=== PATIENT | male | born 1990 | race Caucasian/White ===

== ENCOUNTER → 2016-10-09 | Outpatient (CLI) | payer OTHER ==
[~2016-10-09] MED LIST: No Historical Meds
--- NOTE | 2016-10-09 11:34 | REP ---
Clinical: Testicular mass. Technique: Real time spivey scale and color Doppler evaluation using linear high frequency transducer. Comparison: 09/04/2015. Findings: With comparison to prior ultrasound, the bilateral testicles and epididymi are stable. The testicles are symmetrically heterogeneous with few scattered calcifications and subtle irregular contour to the right testicle is again noted without change. No focal testicular mass lesion is identified. Doppler interrogation demonstrates symmetric vascularity without torsion or acute infectious/inflammatory process. No hydroceles. No varicoceles. Right testicle measures 2.6 x 1.3 x 1.6 cm. Left testicle measures 3.5 x 1.7 x 2.2 cm. Impression: Stable appearance of the bilateral testicles. No discrete testicular mass lesion or acute abnormality. Signed by Chase Prescott MD 10/09/2016 11:25 A
== END ==
LOC: M SMT 09:50
PROVIDERS: ATTEND Urology
DX: N50.9 Disorder of male genital organs, unspecified (principal)

== ENCOUNTER → 2016-10-30 | Outpatient (CLI) | payer OTHER ==
--- NOTE | 2016-10-30 13:13 | REP ---
RIGHT ANKLE, FOUR VIEWS: HISTORY: Pain. There is no acute fracture or dislocation. The joint space is normal in appearance. Soft tissue swelling is present. IMPRESSION: There is no acute fracture or dislocation. Signed by Asaf Baig MD 10/30/2016 01:13 P
--- NOTE | 2016-10-30 13:14 | REP ---
RIGHT FOOT, FOUR VIEWS: HISTORY: Pain. There is no acute fracture or dislocation. The joint spaces are normal in appearance. IMPRESSION: There is no acute fracture or dislocation. Signed by Asaf Baig MD 10/30/2016 01:20 P
== END ==
LOC: M LRY 12:04
PROVIDERS: ATTEND Physician Assistant
DX: M25.571 Pain in right ankle and joints of right foot (principal); X58.XXXA Exposure to other specified factors, initial encounter; Y92.89 Other specified places as the place of occurrence of the external cause; Y93.89 Activity, other specified; Y99.8 Other external cause status

== ENCOUNTER → 2017-05-06 | Outpatient (REF) | payer OTHER | LOC: M SFHCLERA 16:33 | PROVIDERS: ATTEND Physician Assistant | DX: R94.6 Abnormal results of thyroid function studies (principal) ==

== ENCOUNTER → 2017-08-06 | Outpatient (REF) | payer OTHER ==
[2017-08-06 13:49] LABS: FREE T4 0.93 NG/DL (0.76-1.46)
== END ==
LOC: M SFHCLERA 08:23
DX: F32.9 Major depressive disorder, single episode, unspecified (principal)

== ENCOUNTER → 2018-08-06 | Outpatient (REF) | payer OTHER ==
[2018-08-06 11:38] LABS: BASO % 0.6 % (0.0-1.0); EOS # 0.3 10^3/uL (0.0-0.50); EOS % 3.9 % (0.0-3.0); HEMATOCRIT 44.6 % (42.0-52.0); LYMPH # 1.7 10^3/uL (1.5-6.5); LYMPH % 25.8 % (24.0-44.0); MEAN CORPUSCULAR HEMOGLOBIN 29.1 pg (27.0-33.0); MEAN CORPUSCULAR HGB CONC 33.6 g/dl (32.0-36.5); MEAN CORPUSCULAR VOLUME 86.4 fl (80.0-96.0); MONO # 0.7 10^3/uL (0.0-0.8); MONO % 11.3 % (0.0-5.0); NEUTROPHILS # 3.8 10^3/uL (1.8-7.7); NEUTROPHILS % 58.2 % (36.0-66.0); PLATELET COUNT, AUTOMATED 273 10^3/uL (150-450); RED BLOOD COUNT 5.16 10^6/uL (4.30-6.10); WHITE BLOOD COUNT 6.4 10^3/uL (4.0-10.0)
[2018-08-06 12:02] LABS: ALBUMIN 3.8 GM/DL (3.2-5.2); ALT/SGPT 40 U/L (12-78); BILIRUBIN,TOTAL 0.4 MG/DL (0.2-1.0); BLOOD UREA NITROGEN 15 MG/DL (7-18); CARBON DIOXIDE LEVEL 27 MEQ/L (21-32); CHLORIDE LEVEL 105 MEQ/L (98-107); CHOLESTEROL LEVEL 177 MG/DL (<200); CHOLESTEROL RISK RATIO 4.214 (<5); FREE T4 0.91 NG/DL (0.76-1.46); GLOMERULAR FILTRATION RATE > 60.0 (>60); GLUCOSE, FASTING 105 MG/DL (70-100); HDL CHOLESTEROL 42 MG/DL (>40); LDL CHOLESTEROL 113 MG/DL (<100); NON-HDL-C 135 MG/DL; POTASSIUM SERUM 4.7 MEQ/L (3.5-5.1); SODIUM LEVEL 141 MEQ/L (136-145); TRIGLYCERIDES LEVEL 109 MG/DL (<150)
== END ==
LOC: M SFHCLERA 09:03
PROVIDERS: ATTEND Nurse Practitioner Family
DX: Z00.00 Encounter for general adult medical examination without abnormal findings (principal); E03.9 Hypothyroidism, unspecified

== ENCOUNTER 2018-10-12 06:37 | Day surgery (SDC) | payer OTHER ==
[~2018-10-12] VITALS: Ht 177.8 cm; Wt 148.3 kg
[~2018-10-12 06:37] MED LIST changes: +LEVO75TA4 PO
[2018-10-12] MEDS ORDERED: NS 1,000 ML IV ONE (06:45)
[2018-10-12] MEDS ORDERED: PROPOFOL 200 MG/20 ML VIAL As Ordered ONE (07:01)
[2018-10-12] MEDS ORDERED: LIDOCAINE 2% INJ 100 MG/5 ML SDV (FOR ANES.) As Ordered ONE (07:40)
--- NOTE | 2018-10-12 07:56 | ROOR ---
Patient Name: Junior Skaggs Procedure Date: 10/12/2018 7:33 AM Date of : 1990 Age: 27 Room: [facility] Gender: Male Note Status: Finalized Procedure: Colonoscopy Indications: Hematochezia Providers: Roger Luciano MD Referring MD: Rae VELASQUEZ Requesting Provider: Medicines: Monitored Anesthesia Care Complications: No immediate complications. Procedure: Pre-Anesthesia Assessment: - Prior to the procedure, a History and Physical was performed, and patient medications and allergies were reviewed. The patient is competent. The risks and benefits of the procedure and the sedation options and risks were discussed with the patient. All questions were answered and informed consent was obtained. Patient identification and proposed procedure were verified by the physician, the nurse and the anesthesiologist in the procedure room. Mental Status Examination: alert and oriented. Airway Examination: normal oropharyngeal airway and neck mobility. Respiratory Examination: clear to auscultation. CV Examination: normal. Prophylactic Antibiotics: The patient does not require prophylactic antibiotics. Prior Anticoagulants: The patient has taken no previous anticoagulant or antiplatelet agents. ASA Grade Assessment: III - A patient with severe systemic disease. After reviewing the risks and benefits, the patient was deemed in satisfactory condition to undergo the procedure. The anesthesia plan was to use monitored anesthesia care (MAC). Immediately prior to administration of medications, the patient was re-assessed for adequacy to receive sedatives. The heart rate, respiratory rate, oxygen saturations, blood pressure, adequacy of pulmonary ventilation, and response to care were monitored throughout the procedure. The physical status of the patient was re-assessed after the procedure. The Colonoscope was introduced through the anus and advanced to the terminal ileum, with identification of the appendiceal orifice and IC valve. The patient tolerated the procedure well. The colonoscopy was performed without difficulty. The quality of the bowel preparation was good. The terminal ileum, ileocecal valve, appendiceal orifice, and rectum were photographed. Scope insertion time was 2 minutes. Scope withdrawal time was 8 minutes. The total duration of the procedure was 10 minutes. Findings: The perianal and digital rectal examinations were normal. The terminal ileum appeared normal. Non-bleeding external and internal hemorrhoids were found during retroflexion. The hemorrhoids were medium-sized. No other significant abnormalities were identified in a careful examination of the remainder of the colon. Impression: - The examined portion of the ileum was normal. - Non-bleeding external and internal hemorrhoids. - No specimens collected. Recommendation: - Patient has a contact number available for emergencies. The signs and symptoms of potential delayed complications were discussed with the patient. Return to normal activities tomorrow. Written discharge instructions were provided to the patient. - High fiber diet. - Continue present medications. - Preparation H suppository: Insert rectally daily for 5 days. - Return to primary care physician. Roger Luciano MD Roger Luciano MD 10/12/2018 7:56:40 AM Electronically signed by Roger Luciano MD Number of Addenda: 0 Note Initiated On: 10/12/2018 7:33 AM Estimated Blood Loss: Estimated blood loss: none.
[2018-10-12 08:05] VITALS: BP 148/97
== END 2018-10-12 08:18 | disposition home or self-care (01) ==
LOC: M OPP 06:37
PROVIDERS: ATTEND Internal Medicine Gastroenterology
DX: K92.1 Melena (principal); E03.9 Hypothyroidism, unspecified; Z79.899 Other long term (current) drug therapy

== ENCOUNTER 2018-12-01 11:42 | Emergency (ER) | payer OTHER ==
[~2018-12-01] VITALS: Ht 177.8 cm; Wt 152.0 kg
[2018-12-01 12:16] LABS: BASO % 0.4 % (0.0-1.0); EOS # 0.2 10^3/uL (0.0-0.50); EOS % 2.8 % (0.0-3.0); HEMATOCRIT 43.9 % (42.0-52.0); LYMPH # 1.5 10^3/uL (1.5-6.5); LYMPH % 18.4 % (24.0-44.0); MEAN CORPUSCULAR HEMOGLOBIN 29.8 pg (27.0-33.0); MEAN CORPUSCULAR HGB CONC 34.2 g/dl (32.0-36.5); MEAN CORPUSCULAR VOLUME 87.3 fl (80.0-96.0); MONO # 0.7 10^3/uL (0.0-0.8); MONO % 8.7 % (0.0-5.0); NEUTROPHILS # 5.8 10^3/uL (1.8-7.7); NEUTROPHILS % 69.3 % (36.0-66.0); PLATELET COUNT, AUTOMATED 252 10^3/uL (150-450); RED BLOOD COUNT 5.03 10^6/uL (4.30-6.10); WHITE BLOOD COUNT 8.4 10^3/uL (4.0-10.0)
[2018-12-01 12:51] LABS: INR 0.95; PROTHROMBIN TIME 12.8 SECONDS (12.1-14.4)
[2018-12-01 12:52] LABS: PARTIAL THROMBOPLASTIN TIME 26.4 SECONDS (25.4-37.6)
--- NOTE | 2018-12-01 12:55 | REP ---
CT Head without contrast HISTORY: Fall COMPARISON: 04/14/2009 There is no intraparenchymal hemorrhage, acute infarct, mass or midline shift. 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 The ventricular system is normal in appearance. There is no extra cerebral collection. There is no fracture. The visualized sinuses are clear. IMPRESSION: There is no intracranial lesion. Electronically Signed by Asaf Baig MD 12/01/2018 12:47 P
[2018-12-01 13:00] LABS: ALBUMIN 3.4 GM/DL (3.2-5.2); ALT/SGPT 27 U/L (12-78); BILIRUBIN,DIRECT < 0.1 MG/DL (0.0-0.2); BILIRUBIN,TOTAL 0.3 MG/DL (0.2-1.0); BLOOD UREA NITROGEN 14 MG/DL (7-18); CALCIUM LEVEL 9.2 MG/DL (8.5-10.1); CARBON DIOXIDE LEVEL 27 MEQ/L (21-32); CHLORIDE LEVEL 108 MEQ/L (98-107); CREATININE FOR GFR 0.86 MG/DL (0.70-1.30); ETHYL ALCOHOL (ETHANOL) < 0.003 % (0.000-0.010); GLOMERULAR FILTRATION RATE > 60.0 (>60); GLUCOSE, FASTING 123 MG/DL (70-100); POTASSIUM SERUM 4.2 MEQ/L (3.5-5.1); SODIUM LEVEL 142 MEQ/L (136-145); TOTAL PROTEIN 6.6 GM/DL (6.4-8.2)
--- NOTE | 2018-12-01 13:00 | REP ---
CT cervical spine without contrast HISTORY: Fall COMPARISON: None The cervical spine is visualized from C1 to the C7 level. There is no acute fracture or subluxation. There is no disc bulge or herniation. The spinal canal and neural foramina are patent. The intervertebral discs and vertebral bodies are normal in height. There is loss of the normal lordotic curve. IMPRESSION: There is no acute fracture or subluxation. Electronically Signed by Asaf Baig MD 12/01/2018 12:52 P
[2018-12-01 13:39] LABS: AMPHETAMINES LEVEL URINE NEGATIVE (NEGATIVE); BARBITURATES URINE NEGATIVE (NEGATIVE); BENZODIAZEPINES URINE NEGATIVE (NEGATIVE); CANNABINOIDS URINE NEGATIVE (NEGATIVE); COCAINE METABOLITE URINE NEGATIVE (NEGATIVE); METHADONE URINE NEGATIVE (NEGATIVE); OPIATES URINE NEGATIVE (NEGATIVE); PHENCYCLIDINE URINE NEGATIVE (NEGATIVE)
[2018-12-01] MEDS ORDERED: KETOROLAC 30 MG/ML VIAL (J1885) As Ordered ONE (14:13)
[2018-12-01] MEDS ORDERED: KETOROLAC 30 MG/ML VIAL (J1885) IV ONE (14:15)
[2018-12-01 15:11] LABS: CK-MB VALUE MASS < 1.0 NG/ML (<3.6); CPK CREATINE PHOSPHOKINASE 48 U/L (39-308); MB/CK RELATIVE INDEX 2.08 (< OR =4); TROPONIN I < 0.02 NG/ML (< 0.10)
--- NOTE | 2018-12-01 22:12 | REPVR ---
EXAM: MR Head Without Contrast EXAM DATE/TIME: 12/01/2018 9:12 PM CLINICAL HISTORY: 28 years old, male; Signs and symptoms; Dizziness and other: Fall this am, ? seizure; Additional info: Syncope/headache TECHNIQUE: Imaging protocol: MR of the head without contrast. 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 I would recommend a followup MRI examination in no longer in 6 months for reevaluation of the document stability. Followup should be done with contrast. There is no evidence of abnormal signal intensity within the brain. There is no evidence of mass effect. Ventricles: Normal. No ventriculomegaly. Bones/joints: Unremarkable. Soft tissues: Normal. Sinuses: Clear paranasal sinuses and mastoid air cells. Mastoid air cells: Normal as visualized. No mastoid effusion. Orbits: Unremarkable. Other vasculature: The vessels of the [place] have normal signal void. 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 To exclude any possibility pathology recommend followup MRI in no longer than 6 months for reevaluation and to document stability. Contrast would be helpful. Electronically signed by: Mu Butts On 12/01/2018 22:12:13 PM
[2018-12-01] MEDS ORDERED: IBUP-1114 PO (22:26)
[2018-12-01 22:47] VITALS: BP 145/81
--- NOTE | 2018-12-02 06:06 | ECGEPIP ---
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
--- NOTE | 2018-12-03 14:06 | ED PDOC ---
Post-Departure Follow-Up dr parker and vannesa davis faxed formal report of mri brain for fu Kar Fallon MD December 03, 2018 14:06
== END 2018-12-01 23:21 | disposition home or self-care (01) ==
LOC: M ED 11:42
DX: S06.0X9A Concussion with loss of consciousness of unspecified duration, initial encounter (principal); X58.XXXA Exposure to other specified factors, initial encounter; Y92.9 Unspecified place or not applicable; Y93.9 Activity, unspecified; Y99.9 Unspecified external cause status; R93.0 Abnormal findings on diagnostic imaging of skull and head, not elsewhere classified; E03.9 Hypothyroidism, unspecified; M54.5 Low back pain; Z79.899 Other long term (current) drug therapy
CPT/HCPCS: 70450; 70551; 72125; 80048; 80076; 80307; 81001; 82550; 82553; 84443; 84484; 85025; 85610; 85730; 93005; 93041; 94760; 96374; 99285; G0480; J1885

== ENCOUNTER 2019-04-11 20:20 | Emergency (ER) | payer OTHER ==
[~2019-04-11] VITALS: Ht 177.8 cm; Wt 138.6 kg
[~2019-04-11 20:20] MED LIST changes: +IBUP-1114 PO
[2019-04-11] MEDS ORDERED: LORazepam 2 MG/ML VIAL (J2060) IV STA (20:33)
[2019-04-11] MEDS ORDERED: NS 1,000 ML IV SCH (20:33)
[2019-04-11] MEDS ORDERED: ASPIRIN 81 MG CHEW TABLET PO ONE (20:45)
[2019-04-11 20:55] LABS: BASO % 0.3 % (0.0-1.0); EOS # 0.2 10^3/uL (0.0-0.5); EOS % 1.6 % (0.0-3.0); HEMATOCRIT 43.7 % (42.0-52.0); LYMPH % 20.3 % (24.0-44.0); MEAN CORPUSCULAR HEMOGLOBIN 29.4 pg (27.0-33.0); MEAN CORPUSCULAR HGB CONC 34.3 g/dl (32.0-36.5); MEAN CORPUSCULAR VOLUME 85.7 fl (80.0-96.0); MONO # 0.6 10^3/uL (0.0-0.8); MONO % 6.3 % (0.0-5.0); NEUTROPHILS # 7.1 10^3/uL (1.5-8.5); NEUTROPHILS % 71.3 % (36.0-66.0); PLATELET COUNT, AUTOMATED 279 10^3/uL (150-450)
[2019-04-11 21:05] LABS: INR 0.99; PROTHROMBIN TIME 12.8 SECONDS (11.8-14.0)
[2019-04-11 21:24] LABS: ALBUMIN 3.6 GM/DL (3.2-5.2); ALT/SGPT 39 U/L (12-78); BILIRUBIN,DIRECT 0.2 MG/DL (0.0-0.2); BILIRUBIN,TOTAL 0.6 MG/DL (0.2-1.0); BLOOD UREA NITROGEN 10 MG/DL (7-18); CALCIUM LEVEL 8.6 MG/DL (8.5-10.1); CARBON DIOXIDE LEVEL 26 MEQ/L (21-32); CHLORIDE LEVEL 107 MEQ/L (98-107); CK-MB VALUE MASS < 1.0 NG/ML (<3.6); CPK CREATINE PHOSPHOKINASE 48 U/L (39-308); CREATININE FOR GFR 0.99 MG/DL (0.70-1.30); GLOMERULAR FILTRATION RATE > 60.0 (>60); GLUCOSE, FASTING 108 MG/DL (70-100); LIPASE 73 U/L (73-393); MB/CK RELATIVE INDEX 2.08 (< OR =4); POTASSIUM SERUM 3.9 MEQ/L (3.5-5.1); SODIUM LEVEL 141 MEQ/L (136-145); TOTAL PROTEIN 7.2 GM/DL (6.4-8.2); TROPONIN I < 0.02 NG/ML (< 0.10)
[2019-04-11 21:35] VITALS: BP 137/72
--- NOTE | 2019-04-12 08:09 | REP ---
Chest x-ray: Two views. History: Chest pain . Comparison study: No comparison chest x-ray . Findings: The lungs are well inflated and free of infiltrate. The pleural angles are sharp. The heart size is normal. Pulmonary vasculature is not increased. No significant bony abnormality is seen. Impression: Negative chest x-ray. Electronically Signed by Marco Mccrary MD 04/12/2019 08:00 A
--- NOTE | 2019-04-12 08:28 | ECGEPIP ---
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
== END 2019-04-11 22:00 | disposition home or self-care (01) ==
LOC: M ED 20:20
DX: F41.9 Anxiety disorder, unspecified (principal); J45.909 Unspecified asthma, uncomplicated; E07.9 Disorder of thyroid, unspecified; Z79.890 Hormone replacement therapy
CPT/HCPCS: 71046; 80048; 80076; 82550; 82553; 83690; 84484; 85025; 85610; 93005; 93041; 94760; 96361; 96374; 99284; J2060

== ENCOUNTER → 2019-08-24 | Outpatient (REF) | payer OTHER ==
[2019-08-24 12:10] LABS: ALBUMIN 3.8 GM/DL (3.2-5.2); ALT/SGPT 51 U/L (12-78); BILIRUBIN,TOTAL 0.5 MG/DL (0.2-1.0); BLOOD UREA NITROGEN 15 MG/DL (7-18); CALCIUM LEVEL 9.5 MG/DL (8.5-10.1); CARBON DIOXIDE LEVEL 28 MEQ/L (21-32); CHLORIDE LEVEL 107 MEQ/L (98-107); CREATININE FOR GFR 0.91 MG/DL (0.70-1.30); GLOMERULAR FILTRATION RATE > 60.0 (>60); GLUCOSE, FASTING 95 MG/DL (70-100); POTASSIUM SERUM 4.1 MEQ/L (3.5-5.1); SODIUM LEVEL 142 MEQ/L (136-145)
[2019-08-24 12:28] LABS: HEMOGLOBIN A1c 5.6 %
== END ==
LOC: M SFHCLERA 08:41
PROVIDERS: ATTEND Nurse Practitioner Family
DX: R73.03 Prediabetes (principal)

== ENCOUNTER → 2019-08-24 | Outpatient (CLI) | payer OTHER ==
--- NOTE | 2019-08-24 09:32 | REP ---
Clinical: Pain. Technique: AP, lateral, swimmers, flexion/extension, open-mouth and bilateral oblique views of the cervical spine. Findings: Straightening of normal lordosis is suggested. Alignment is maintained and there is no acute fracture / compression injury or subluxation. There is minimal endplate sclerosis and subtle disc space narrowing suggested at C4-5 through C6-7. Neural foramen are patent. Open mouth view demonstrates normal C1-C2 articulation and odontoid process. Impression: Mild degenerative spondylosis at C4-C7. Electronically Signed by Chase Prescott MD 08/24/2019 09:24 A
== END ==
LOC: M LRY 08:50
PROVIDERS: ATTEND Nurse Practitioner Family
DX: E65 Localized adiposity (principal)

== ENCOUNTER → 2019-09-03 | Outpatient (REF) | payer OTHER ==
[2019-09-03 12:48] LABS: FREE T4 1.06 NG/DL (0.76-1.46); THYROID STIMULATING HORMONE 4.54 uIU/ML (0.358-3.740)
== END ==
LOC: M SFHCLERA 09:35
PROVIDERS: ATTEND Nurse Practitioner Family
DX: E03.9 Hypothyroidism, unspecified (principal)

== ENCOUNTER → 2019-10-12 | Outpatient (REF) | payer OTHER ==
[2019-10-12 11:41] LABS: FREE T4 1.24 NG/DL (0.76-1.46); THYROID STIMULATING HORMONE 4.27 uIU/ML (0.358-3.740)
== END ==
LOC: M SFHCLERA 08:50
PROVIDERS: ATTEND Nurse Practitioner Family
DX: E03.9 Hypothyroidism, unspecified (principal)

== ENCOUNTER → 2019-11-08 | Outpatient (CLI) | payer OTHER | LOC: M LABSMTC 12:29 | PROVIDERS: ATTEND Family Medicine | DX: Z11.59 Encounter for screening for other viral diseases (principal); Z20.828 Contact with and (suspected) exposure to other viral communicable diseases ==

== ENCOUNTER 2020-07-02 07:10 | Emergency (ER) | payer OTHER ==
[~2020-07-02] VITALS: Ht 177.8 cm; Wt 145.8 kg
[2020-07-02] MEDS ORDERED: METF-838 PO (07:19)
[2020-07-02] MEDS ORDERED: METF-877 PO (07:19)
[2020-07-02] MEDS ORDERED: IBUP200T45 PO (07:19)
[2020-07-02] MEDS ORDERED: CYCL-707 PO (07:36)
[2020-07-02] MEDS ORDERED: IBUP-1022 PO (07:37)
[2020-07-02] MEDS ORDERED: NORCO, ANEXSIA 5/325MG TABLET (HYDROcodone/ACETAMINOPHEN) PO ONE (07:45)
[2020-07-02] MEDS ORDERED: CYCLOBENZAPRINE 10MG TABLET PO ONE (07:45)
[2020-07-02 07:46] VITALS: BP 157/98
== END 2020-07-02 07:49 | disposition home or self-care (01) ==
LOC: M ED 07:10
DX: M54.9 Dorsalgia, unspecified (principal); E11.9 Type 2 diabetes mellitus without complications; E07.9 Disorder of thyroid, unspecified; Z79.899 Other long term (current) drug therapy

== ENCOUNTER → 2020-09-18 | Outpatient (CLI) | payer OTHER ==
[~2020-09-18] MED LIST changes: +CYCL-707 PO; +IBUP-1022 PO; +IBUP200T45 PO; +METF-838 PO; +METF-877 PO
[2020-09-18 16:22] LABS: BLOOD UREA NITROGEN 17 MG/DL (7-18); CARBON DIOXIDE LEVEL 28 MEQ/L (21-32); CHLORIDE LEVEL 108 MEQ/L (98-107); CREATININE FOR GFR 0.96 MG/DL (0.70-1.30); GLOMERULAR FILTRATION RATE > 60.0 (>60); GLUCOSE, FASTING 91 MG/DL (70-100); POTASSIUM SERUM 4.4 MEQ/L (3.5-5.1); SODIUM LEVEL 140 MEQ/L (136-145)
[2020-09-18 17:00] LABS: HEMOGLOBIN A1c 5.6 %
== END ==
LOC: M WUC 11:56
PROVIDERS: ATTEND Nurse Practitioner Family
DX: E03.9 Hypothyroidism, unspecified (principal); R73.03 Prediabetes

== ENCOUNTER 2020-12-17 23:23 | Emergency (ER) | payer OTHER ==
[~2020-12-17] VITALS: Ht 177.8 cm; Wt 143.9 kg
[2020-12-18 01:47] LABS: BASO % 0.5 % (0.0-1.0); EOS # 0.2 10^3/uL (0.0-0.5); EOS % 2.8 % (0.0-3.0); HEMATOCRIT 41.8 % (42.0-52.0); HEMOGLOBIN 13.6 g/dl (13.5-17.5); LYMPH # 2.8 10^3/uL (1.5-5.0); LYMPH % 36.8 % (24.0-44.0); MEAN CORPUSCULAR HEMOGLOBIN 28.8 pg (27.0-33.0); MEAN CORPUSCULAR HGB CONC 32.5 g/dl (32.0-36.5); MEAN CORPUSCULAR VOLUME 88.4 fl (80.0-96.0); MONO # 0.9 10^3/uL (0.0-0.8); MONO % 11.6 % (2.0-8.0); NEUTROPHILS # 3.6 10^3/uL (1.5-8.5); NEUTROPHILS % 48.2 % (36.0-66.0); PLATELET COUNT, AUTOMATED 230 10^3/uL (150-450); RED BLOOD COUNT 4.73 10^6/uL (4.30-6.10); WHITE BLOOD COUNT 7.5 10^3/uL (4.0-10.0)
--- NOTE | 2020-12-18 02:32 | REPVR ---
PROCEDURE INFORMATION: Exam: CT Abdomen And Pelvis Without Contrast Exam date and time: 12/18/2020 1:37 AM Age: 30 years old Clinical indication: Left flank pain, hematuria TECHNIQUE: Imaging protocol: Computed tomography of the abdomen and pelvis without contrast. Radiation optimization: All CT scans at this facility use at least one of these dose optimization techniques: automated exposure control; mA and/or kV adjustment per patient size (includes targeted exams where dose is matched to clinical indication); or iterative reconstruction. COMPARISON: No relevant prior studies available. FINDINGS: Lungs: The imaged portions of the lung bases are clear. The lungs were not fully imaged. Heart: No cardiomegaly or pericardial effusion. Liver: Unremarkable. No liver lesion is identified. The contour of the liver is smooth. No hepatomegaly is noted. Gallbladder and bile ducts: There is high attenuation material layering in the dependent portion of the gallbladder, which may represent gallstones and/or biliary sludge. No gallbladder wall thickening, pericholecystic fluid, or inflammatory fat stranding is noted around the gallbladder. No dilation of the bile ducts is noted. No calcified stones are seen in the common bile duct. Pancreas: Unremarkable. No dilation of the main pancreatic duct is noted. Spleen: Unremarkable. No splenomegaly is noted. Adrenal glands: Normal. No adrenal mass is noted. Kidneys and ureters: There is a 4 mm calculus in the left ureteropelvic junction. There is a 4 mm calculus in an upper pole calyx of the right kidney. No calculi are noted in the right ureter. No hydronephrosis or hydroureter is noted. No renal lesion is identified with this unenhanced technique. Stomach and bowel: The stomach and small bowel are unremarkable. There is no evidence for a bowel obstruction, diverticulosis, diverticulitis, perforated viscus, pneumatosis intestinalis, intussusception, or volvulus. There is a moderate amount of formed stool in the cecum, ascending colon, and transverse colon. The descending colon and sigmoid colon are decompressed, limiting their optimal evaluation. There is no pericolonic inflammatory fat stranding. Appendix: Normal. There is no evidence for appendicitis. Intraperitoneal space: No free air. No ascites. No abscess. Retroperitoneal space: No fluid collection. No mass. Vasculature: The abdominal aorta is normal in caliber. Lymph nodes: No enlarged lymph nodes. Urinary bladder: The distended urinary bladder is normal in appearance. No stones or masses are seen in the bladder. Reproductive: The prostate gland and seminal vesicles are unremarkable. Bones/joints: There is a chronic fracture of the left superior articular process of S1 (images 85-86 of the sagittal series 203). No acute fracture or dislocation is noted. 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 Soft tissues: There is a small fat containing umbilical hernia. There is nonspecific edema in the subcutaneous tissues posteriorly along the midline of the lumbar spine. IMPRESSION: 1. 4 mm calculus in the left ureteropelvic junction, but no left hydronephrosis. 2. 4 mm calculus in an upper pole calyx of the right kidney, but no right hydronephrosis. 3. High attenuation material layering in the dependent portion of the gallbladder, which may represent gallstones and/or biliary sludge. 4. Small fat containing umbilical hernia. Electronically signed by: Alex Barrientos On 12/18/2020 02:32:17 AM
[2020-12-18] MEDS ORDERED: ONDA4TAB6 PO (02:37)
[2020-12-18] MEDS ORDERED: FLOM0.4C39 PO (02:37)
[2020-12-18] MEDS ORDERED: IBUP-1022 PO (02:37)
[2020-12-18 02:45] VITALS: BP 137/84
== END 2020-12-18 02:47 | disposition home or self-care (01) ==
LOC: M ED 23:23
DX: N20.2 Calculus of kidney with calculus of ureter (principal); K43.9 Ventral hernia without obstruction or gangrene; M19.09 Primary osteoarthritis, other specified site; E11.9 Type 2 diabetes mellitus without complications; Z79.84 Long term (current) use of oral hypoglycemic drugs; Z79.899 Other long term (current) drug therapy

== ENCOUNTER → 2020-12-21 | Outpatient (CLI) | payer OTHER ==
[~2020-12-21] MED LIST changes: +FLOM0.4C39 PO; +ONDA4TAB6 PO
[2020-12-21 17:14] LABS: FOLLICLE STIMULATING HORMONE 15.1 mIU/mL (1.4-18.1); LUTEINIZING HORMONE 8.4 mIU/mL (1.5-9.3)
== END ==
LOC: M WUC 11:16
PROVIDERS: ATTEND Nurse Practitioner Family
DX: R86.9 Unspecified abnormal finding in specimens from male genital organs (principal); N46.9 Male infertility, unspecified

== ENCOUNTER → 2020-12-21 | Outpatient (REF) | payer OTHER ==
[2020-12-21 12:18] LABS: APPEARANCE, URINE CLEAR (CLEAR); BACTERIA, URINE AUTO NEGATIVE (NEGATIVE); BILIRUBIN, URINE AUTO NEGATIVE (NEGATIVE); BLOOD, URINE BLOOD 2+ (NEGATIVE); COLOR, URINE YELLOW (YELLOW); GLUCOSE, URINE (UA) AUTO NEGATIVE (NEGATIVE); KETONE, URINE AUTO NEGATIVE (NEGATIVE); LEUKOCYTE ESTERASE, URINE AUTO NEGATIVE (NEGATIVE); MUCUS, URINE SMALL (NEGATIVE); NITRITE, URINE AUTO NEGATIVE (NEGATIVE); PROTEIN, URINE AUTO NEGATIVE (NEGATIVE); RBC, URINE AUTO 23 /HPF (0-3); SPECIFIC GRAVITY URINE AUTO 1.025 (1.002-1.035); SQUAMOUS EPITHELIAL CELL UR AU 0 /HPF (0-6); UROBILINOGEN, URINE AUTO 0.2 mg/dL (0.0-2.0); WBC, URINE AUTO 2 /HPF (0-3)
== END ==
LOC: M SMT 11:56
PROVIDERS: ATTEND Nurse Practitioner Family
DX: R86.9 Unspecified abnormal finding in specimens from male genital organs (principal); N46.9 Male infertility, unspecified

== ENCOUNTER → 2021-03-14 | Outpatient (CLI) | payer OTHER ==
[2021-03-14 17:27] LABS: BLOOD UREA NITROGEN 12 MG/DL (7-18); CALCIUM LEVEL 9.1 MG/DL (8.5-10.1); CARBON DIOXIDE LEVEL 26 MEQ/L (21-32); CHLORIDE LEVEL 107 MEQ/L (98-107); CREATININE FOR GFR 0.98 MG/DL (0.70-1.30); FREE T4 1.13 NG/DL (0.76-1.46); GLOMERULAR FILTRATION RATE > 60.0 (>60); GLUCOSE, FASTING 80 MG/DL (70-100); POTASSIUM SERUM 4.5 MEQ/L (3.5-5.1); SODIUM LEVEL 140 MEQ/L (136-145)
[2021-03-14 18:08] LABS: HEMOGLOBIN A1c 5.4 %
== END ==
LOC: M WUC 14:27
PROVIDERS: ATTEND Nurse Practitioner Family
DX: E03.9 Hypothyroidism, unspecified (principal); R73.03 Prediabetes

== ENCOUNTER → 2021-09-14 | Outpatient (CLI) | payer OTHER ==
[2021-09-14 16:56] LABS: BLOOD UREA NITROGEN 17 MG/DL (7-18); CALCIUM LEVEL 9.2 MG/DL (8.5-10.1); CARBON DIOXIDE LEVEL 30 MEQ/L (21-32); CHLORIDE LEVEL 108 MEQ/L (98-107); CREATININE FOR GFR 0.94 MG/DL (0.70-1.30); FREE T4 1.25 NG/DL (0.76-1.46); GLOMERULAR FILTRATION RATE > 60.0 (>60); GLUCOSE, FASTING 101 MG/DL (70-100); POTASSIUM SERUM 4.5 MEQ/L (3.5-5.1); SODIUM LEVEL 142 MEQ/L (136-145)
[2021-09-14 17:32] LABS: HEMOGLOBIN A1c 5.7 %
== END ==
LOC: M WUC 11:39
PROVIDERS: ATTEND Nurse Practitioner Family
DX: E03.9 Hypothyroidism, unspecified (principal); R73.03 Prediabetes

== ENCOUNTER → 2021-10-05 | Outpatient (CLI) | payer OTHER | LOC: M SOG 09:31 | PROVIDERS: ATTEND Orthopaedic Surgery | DX: M25.521 Pain in right elbow (principal) ==

== ENCOUNTER → 2022-02-22 | Outpatient (CLI) | payer OTHER ==
[2022-02-22 13:10] LABS: HEMOGLOBIN A1c 5.6 %
[2022-02-22 13:19] LABS: FREE T4 0.94 NG/DL (0.76-1.46); THYROID STIMULATING HORMONE 2.01 uIU/ML (0.358-3.740)
== END ==
LOC: M WUC 09:03
PROVIDERS: ATTEND Student in an Organized Health Care Education/Training Program
DX: E03.9 Hypothyroidism, unspecified (principal); R73.03 Prediabetes

== ENCOUNTER → 2022-11-20 | Outpatient (CLI) | payer OTHER ==
[2022-11-20 13:34] LABS: APPEARANCE, URINE CLEAR (CLEAR); BACTERIA, URINE AUTO NEGATIVE (NEGATIVE); BILIRUBIN, URINE AUTO NEGATIVE (NEGATIVE); BLOOD, URINE BLOOD NEGATIVE (NEGATIVE); COLOR, URINE STRAW (YELLOW); GLUCOSE, URINE (UA) AUTO NEGATIVE (NEGATIVE); KETONE, URINE AUTO NEGATIVE (NEGATIVE); LEUKOCYTE ESTERASE, URINE AUTO NEGATIVE (NEGATIVE); NITRITE, URINE AUTO NEGATIVE (NEGATIVE); PROTEIN, URINE AUTO NEGATIVE (NEGATIVE); RBC, URINE AUTO 0 /HPF (0-3); SPECIFIC GRAVITY URINE AUTO 1.006 (1.002-1.035); SQUAMOUS EPITHELIAL CELL UR AU 0 /HPF (0-6); UROBILINOGEN, URINE AUTO 0.2 mg/dL (0.0-2.0); WBC, URINE AUTO 1 /HPF (0-3)
[2022-11-20 13:46] LABS: BASO % 0.6 % (0.0-1.0); EOS # 0.3 10^3/uL (0.0-0.5); HEMATOCRIT 43.6 % (42.0-52.0); HEMOGLOBIN 14.8 g/dl (13.5-17.5); LYMPH # 1.7 10^3/uL (1.5-5.0); LYMPH % 33.7 % (24.0-44.0); MEAN CORPUSCULAR HEMOGLOBIN 30.3 pg (27.0-33.0); MEAN CORPUSCULAR HGB CONC 33.9 g/dl (32.0-36.5); MEAN CORPUSCULAR VOLUME 89.2 fl (80.0-96.0); MONO # 0.5 10^3/uL (0.0-0.8); MONO % 10.1 % (2.0-8.0); NEUTROPHILS # 2.5 10^3/uL (1.5-8.5); NEUTROPHILS % 49.4 % (36.0-66.0); PLATELET COUNT, AUTOMATED 222 10^3/uL (150-450); RED BLOOD COUNT 4.89 10^6/uL (4.30-6.10)
[2022-11-20 13:48] LABS: HEMOGLOBIN A1c 5.2 % (4.0-6.0)
[2022-11-20 13:59] LABS: CORTISOL AM 11.7 UG/DL (4.3-22.4); CREATININE, URINE 37.8 MG/DL
[2022-11-20 14:00] LABS: MALB URINE SIEMENS < 3.0 MG/L; MAU/CREAT RATIO 7.9 MCG/MG (0.0-30.0)
[2022-11-20 14:02] LABS: THYROID STIMULATING HORMONE 3.301 uIU/ML (0.55-4.78)
[2022-11-20 14:03] LABS: FOLLICLE STIMULATING HORMONE 23.4 mIU/ML (1.4-18.1); LUTEINIZING HORMONE 11.7 mIU/ML (1.5-9.3); PROLACTIN 7.45 NG/ML (2.1-17.7)
[2022-11-20 14:04] LABS: ALBUMIN 3.7 G/DL (3.2-5.2); ALKALINE PHOSPHATASE 57 U/L (46-116); ALT/SGPT 17 U/L (7.0-40); AST/SGOT 10 U/L (<34); BILIRUBIN,TOTAL 0.8 MG/DL (0.3-1.2); BLOOD UREA NITROGEN 16 MG/DL (9-23); CALCIUM LEVEL 8.4 MG/DL (8.5-10.1); CARBON DIOXIDE LEVEL 28 MMOL/L (20-31); CHLORIDE LEVEL 105 MMOL/L (98-107); CHOLESTEROL LEVEL 170 MG/DL (<200); CHOLESTEROL RISK RATIO 3.13 (<5); CREATININE FOR GFR 0.95 MG/DL (0.70-1.30); GLOMERULAR FILTRATION RATE > 60.0 (>60); GLUCOSE, FASTING 90 MG/DL (60-100); HDL CHOLESTEROL 54.3 MG/DL (>40); LDL CHOLESTEROL 102.7 MG/DL (<100); NON-HDL-C 115.7 MG/DL; POTASSIUM SERUM 4.5 MMOL/L (3.5-5.1); SODIUM LEVEL 138 MMOL/L (136-145); TOTAL PROTEIN 6.6 G/DL (5.7-8.2); TRIGLYCERIDES LEVEL 65 MG/DL (<150)
[2022-11-21 11:08] LABS: TESTOSTERONE FREE (DIRECT) 18.1 pg/mL (8.7-25.1)
== END ==
LOC: M WUC 08:43
PROVIDERS: ATTEND Family Medicine
DX: E03.9 Hypothyroidism, unspecified (principal); R73.03 Prediabetes; E66.9 Obesity, unspecified

== ENCOUNTER → 2023-02-05 | Outpatient (CLI) | payer OTHER ==
[~2023-02-05] MED LIST changes: +PROHANCE 279.3MG/ML 15ML VIAL As Ordered ONE; +PROHANCE 279.3MG/ML 5ML VIAL As Ordered ONE
== END ==
LOC: M RAD 12:43
PROVIDERS: ATTEND Family Medicine
DX: E34.8 Other specified endocrine disorders (principal); Q28.3 Other malformations of cerebral vessels; J34.9 Unspecified disorder of nose and nasal sinuses
CPT/HCPCS: 70553; A9576

== ENCOUNTER → 2024-11-26 | Outpatient (REF) | payer OTHER ==
[~2024-11-26] MED LIST changes: -FLOM0.4C39 PO; +ONDA-282 PO; -ONDA4TAB6 PO; -PROHANCE 279.3MG/ML 15ML VIAL As Ordered ONE; -PROHANCE 279.3MG/ML 5ML VIAL As Ordered ONE; +TAMS-18 PO
== END ==
LOC: M LAB REF 12:19
PROVIDERS: ATTEND Physician Assistant Medical
DX: R68.82 Decreased libido (principal)

== ENCOUNTER → 2025-05-31 | Outpatient (REF) | payer OTHER ==
[~2025-05-31] MED LIST changes: -IBUP-1022 PO; +IBUP600T42 PO
== END ==
LOC: M LAB REF 12:12
PROVIDERS: ATTEND Physician Assistant Medical
DX: R68.82 Decreased libido (principal)